=== PATIENT | male | born 1950 | race Caucasian/White ===

== ENCOUNTER 2019-12-09 20:28 | Emergency (ER) | payer MEDICARE ==
[~2019-12-09] VITALS: Ht 175.3 cm; Wt 77.3 kg
[2019-12-09] MEDS ORDERED: LOSA1TAB37 PO (20:38)
[2019-12-09] MEDS ORDERED: AMLO10TA7 PO (20:38)
[2019-12-09 20:44] LABS: GLUCOSE,POINT OF CARE 136 MG/DL (70-110)
[2019-12-09] MEDS ORDERED: SODIUM CHLORIDE 0.9% 0 ML ONE (20:53)
[2019-12-09] MEDS ORDERED: IOVERSOL 350 MG/ML 100 ML VIAL ONE (20:53)
[2019-12-09 21:15] LABS: BASOPHILS % (AUTO) 0.9 % (0.0-2.0); EOSINOPHILS % (AUTO) 1.8 % (1.0-6.0); LYMPHOCYTES # (AUTO) 2.7 K/uL (1.0-4.8); LYMPHOCYTES % (AUTO) 38.4 % (22.0-44.0); MEAN CORPUSCULAR HEMOGLOBIN 29.6 pg (26.0-34.0); MEAN CORPUSCULAR HGB CONC 34.1 G/dL (31.0-37.0); MEAN CORPUSCULAR VOLUME 87 fL (80-100); MONOCYTES # (AUTO) 0.5 K/uL (0.1-1.0); MONOCYTES % (AUTO) 7.7 % (2.0-9.0); NEUTROPHILS # (AUTO) 3.6 K/uL (1.8-7.7); NEUTROPHILS % (AUTO) 51.2 % (40.0-70.0); PLATELET COUNT (AUTO) 263 K/uL (150-450); RED BLOOD CELL COUNT(AUTO) 5.06 MIL/uL (4.50-5.90); RED CELL DISTRIBUTION WIDTH 13.2 % (11.5-14.5)
[2019-12-09 21:21] LABS: CALCIUM, TOTAL 9.1 mg/dL (8.8-10.5); CREATININE 1.38 mg/dL (0.60-1.30); POTASSIUM 4.1 mmol/L (3.5-5.1)
[2019-12-09 21:23] LABS: PROTHROMBIN TIME 9.9 SEC (9.4-11.6)
[2019-12-09 21:28] LABS: ALBUMIN 3.7 g/dL (3.4-5.0); BILIRUBIN,TOTAL 0.3 mg/dL (0.1-1.0); TOTAL PROTEIN, SERUM 6.8 g/dL (6.4-8.2)
[2019-12-09] MEDS ORDERED: SODIUM CHLORIDE 0.9% 1,000 ML IV ONE (23:45)
[2019-12-10 00:44] VITALS: BP 188/95
== END 2019-12-10 01:46 | disposition short-term general hospital (02) ==
LOC: EMS 20:32
DX: M79.604 Pain in right leg (principal); M79.605 Pain in left leg; R42 Dizziness and giddiness; E78.00 Pure hypercholesterolemia, unspecified; I10 Essential (primary) hypertension; F17.210 Nicotine dependence, cigarettes, uncomplicated; F19.90 Other psychoactive substance use, unspecified, uncomplicated
CPT/HCPCS: 36415; 70450; 71045; 80053; 82962; 84484; 85025; 85610; 85730; 86850; 86900; 86901; 93005; 96360; 99285; J7030; J7050